=== PATIENT | male | born 1970 | race American Indian/Alaskan Native ===

== ENCOUNTER 2016-12-21 00:25 | Emergency (ER) | payer SELFPAY ==
[2016-12-21 00:53] VITALS: BMI 24.2
--- NOTE | 2016-12-21 01:10 | ED PDOC ---
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 Patient admits to smoking earlier tonight, drinking 40 ounces of beer, and drinks daily. He states that whenever he smokes a cigarette at home he gets shortness of breath and claims he is anxious because he has to take many medications for his heart. He denies any drug use. PCP: PROVIDER,NO Past Medical History Reviewed: Historical Data, Nursing Documentation, Vital Signs Vital Signs: Last Vital Signs Temp 98.0 F 12/21/16 00:51 Pulse 115 H 12/21/16 00:51 Resp 16 12/21/16 00:51 BP 140/80 12/21/16 00:51 Pulse Ox 98 12/21/16 00:51 - Surgical History Surgical History: No Surg Hx - Family History Family History: States: No Known Family Hx - Social History Current smoker - smoking cessation education provided: Yes Alcohol: Occasional Drugs: Denies - Allergies Allergies/Adverse Reactions: Allergies Allergy/AdvReac Type Severity Reaction Status Date / Time No Known Allergies Allergy Verified 12/21/16 00:53 Review of Systems ROS Statement: Except As Marked, All Systems Reviewed And Found Negative Respiratory: Positive for: Shortness of Breath Psych: Positive for: Anxiety Physical Exam - Reviewed Nursing Documentation Reviewed: Yes Vital Signs Reviewed: Yes - Physical Exam Appears: Positive for: No Acute Distress (patient tearful, anxious, and intoxicated appearing) Head Exam: Positive for: ATRAUMATIC, NORMOCEPHALIC Skin: Positive for: Normal Color, Warm, Dry Eye Exam: Positive for: Normal appearance, EOMI, PERRL Neck: Positive for: Normal, Painless ROM, Supple Cardiovascular/Chest: Positive for: Regular Rate, Rhythm. Negative for: Murmur Respiratory: Positive for: Normal Breath Sounds. Negative for: Respiratory Distress Gastrointestinal/Abdominal: Positive for: Normal Exam, Soft. Negative for: Tenderness Back: Positive for: Normal Inspection. Negative for: L CVA Tenderness, R CVA Tenderness, Vertebral Tenderness Extremity: Positive for: Normal ROM. Negative for: Pedal Edema, Deformity Neurologic/Psych: Positive for: Alert, Oriented - Laboratory Results Result Diagrams: 12/21/16 01:00 12/21/16 01:00 - ECG O2 Sat by Pulse Oximetry: 98 (RA) Pulse Ox Interpretation: Normal Medical Decision Making Medical Decision Making: Time: 00:53 Initial Impression: Alcohol intoxication Initial Plan: --EKG --Alcohol serum --Labs --Drug screen --Troponin I --PT/PTT --Chest XR --Reevaluation 7AM Pt. has 2 neg trops. BNP elevated but no clinical signs of fluid overload. Will sign out to Dr. Lacey pending sobriety and re-eval when sober. Scribe Attestation: Documented by Anmol Nuno, acting as a scribe for Rodney Paz MD Provider Scribe Attestation: All medical record entries made by the Scribe were at my direction and personally dictated by me. I have reviewed the chart and agree that the record accurately reflects my personal performance of the history, physical exam, medical decision making, and the department course for this patient. I have also personally directed, reviewed, and agree with the discharge instructions and disposition. Disposition - Clinical Impression Clinical Impression: Alcohol abuse - Patient ED Disposition Is Patient to be Admitted: Transfer of Care - Disposition Disposition: Transfer of Care Disposition Time: 07:00 Condition: STABLE Forms: [facility] ([place]atian) Patient Signed Over To: John Lacey Handoff Comments: pending sobriety and re-eval
[2016-12-21 01:17] LABS: BASO # 0.1 K/uL (0.0-0.2); BASO % 1.8 % (0.0-2.0); EOS % 0.3 % (0.0-4.0); HEMATOCRIT 37.2 % (35.0-51.0); LYMPH # 2.2 K/uL (1.0-4.3); LYMPH % 46.2 % (20.0-40.0); MEAN CELL VOLUME 101.5 fl (80.0-94.0); MEAN CORPUSCULAR HEMOGLOBIN 33.7 pg (27.0-31.0); MEAN CORPUSCULAR HGB CONC 33.3 g/dL (33.0-37.0); MEAN PLATELET VOLUME 7.3 fl (7.2-11.7); MONO # 0.6 K/uL (0.0-0.8); MONO % 11.6 % (0.0-10.0); NEUT # 1.9 K/uL (1.8-7.0); NEUT % 40.1 % (50.0-75.0); NRBC % 0.1 % (0.0-0.0); RED CELL DISTRIBUTION WIDTH 15.2 % (11.5-14.5); WHITE BLOOD COUNT 4.8 K/uL (4.8-10.8)
[2016-12-21 01:25] LABS: BLOOD UREA NITROGEN 10 mg/dl (9-20); CALCIUM 8.6 mg/dL (8.4-10.2); CARBON DIOXIDE 25 mmol/L (22-30); CHLORIDE 110 mmol/L (98-107); GFR AFRICAN-AMERICAN > 60; GLUCOSE,RANDOM 100 mg/dL (75-110); POTASSIUM 4.1 MMOL/L (3.6-5.0); SODIUM 148 mmol/l (132-148)
[2016-12-21 01:26] LABS: PARTIAL THROMBOPLASTIN TIME 29.8 Seconds (25.6-37.1)
[2016-12-21 01:38] LABS: ALCOHOL SERUM 458 mg/dl (0-10)
--- NOTE | 2016-12-21 07:31 | ED PDOC ---
- Laboratory Results Result Diagrams: 12/21/16 01:00 12/21/16 01:00 Interpretation Of Abn Labs: etoh elevated - ECG O2 Sat by Pulse Oximetry: 98 (RA) Pulse Ox Interpretation: Normal - Radiology X-Ray: Interpreted by Me, Viewed By Me X-Ray Interpretation: Cardiomegaly - Progress ED Course And Treament: 731: Took over care from Dr. Paz. Fu on sobriety. 1136: Stable. AAOx3. Pain free. Tolerated PO. No dyspnea. Wants to go home. Ambulated with no issues. No chest pain. Disposition - Clinical Impression Clinical Impression: Alcohol abuse - POA Present On Arrival: None - Disposition Referrals: [facility] [Outside] - 12/23/16 Disposition: Routine/Home Disposition Time: 11:37 Condition: STABLE Additional Instructions: Return if not better in 3 days. Instructions: Abuse of Alcohol (ED) Forms: [facility] (Israeli)
[2016-12-21 11:37] VITALS: O2SAT 98
--- NOTE | 2016-12-21 12:22 | CARD ---
APPROVED REPORT EKG Measurement Heart [id number] <Conclusion> Sinus tachycardia Possible Left atrial enlargement Rightward axis Left ventricular hypertrophy Abnormal ECG
[2016-12-21 13:02] VITALS: BP 128/78; PULSE 86; RESP 18; TEMP 97
--- NOTE | 2016-12-21 13:16 | RAD ---
PROCEDURE: CHEST RADIOGRAPH, 1 VIEW HISTORY: etoh, sob COMPARISON: None available. FINDINGS: LUNGS: Clear. PLEURA: No pneumothorax or pleural fluid seen. CARDIOVASCULAR: Cardiomegaly. OSSEOUS STRUCTURES: No significant abnormalities. VISUALIZED UPPER ABDOMEN: Normal. OTHER FINDINGS: None. IMPRESSION: No active disease.
== END 2016-12-21 12:15 | disposition home or self-care (01) ==
LOC: H.ER 00:25
DX: F10.129 Alcohol abuse with intoxication, unspecified (principal); F17.200 Nicotine dependence, unspecified, uncomplicated
CPT/HCPCS: 71010; 80048; 83880; 84484; 85025; 85610; 85730; 93005; 99283; G0480